=== PATIENT | female | born 1950 | race Two or more races ===

== ENCOUNTER 2019-07-22 16:51 | Observation (INO) | payer MEDICARE, SELFPAY ==
--- NOTE | ~2019-07-22 | XR_ITS ---
XR chest 2V 07/22/2019 17:47 Indication: Left-sided chest pain Procedure: 2 view chest Comparison: 07/24/2018 Findings: Heart size is normal. No focal air space disease, pulmonary edema, pleural effusion or susp ected pneumothorax. No acute osseous abnormality. Impression: 1: No acute cardiopulmonary disease. Reviewed, dictated and finalized at location A. ION STUFFER Impression: 1: No acute cardiopulmonary disease.
--- NOTE | 2019-07-22 17:05 | ECG_ITS ---
Measurements Intervals Brock Rate: 123 P: CT: 0 QRS: 19 QRSD: 86 T: 87 QT: 264 QTc: 379 Interpretive Statements ATRIAL FIBRILLATION WITH RAPID VENTRICULAR RESPONSE INCOMPLETE RIGHT BUNDLE BRANCH BLOCK NONSPECIFIC ST & T-WAVE ABNORMALITY- DIFFUSE LEADS BASELINE ARTIFACT- I, II, AVR, AVL, AVF, V6 ABNORMAL ECG Electronically Signed On 07-22-2019 19:02:10 CYBER ANALYST by Yimi Rome D.O.
[2019-07-22 17:06] VITALS: BP 115/91; PULSE 140; RESP 18; TEMP 36.4; O2SAT 97
[2019-07-22 17:20] LABS: Basophils Percent Auto 0.4 % (0.2-1.2); Eosinophils Absolute Auto 0.2 K/mm3 (0-0.3); Eosinophils Percent Auto 2.8 % (0-4.4); Hematocrit 42.8 % (37.0-47.0); Hemoglobin 13.9 g/dL (12.0-15.0); Immature Granulocyte Absolute 0.01 K/mm3 (0.00-0.031); Immature Granulocyte Percent A 0.1 % (0-0.5); Lymphocytes Absolute Auto 3.32 K/mm3 (0.9-3.2); Lymphocytes Percent Auto 44.9 % (18.3-44.2); Mean Corpuscular HGB Conc 32.5 g/dl (32-36); Mean Corpuscular Hemoglobin 28.5 pg (26-34); Mean Corpuscular Volume 87.7 fl (80-100); Mean Platelet Volume 10.4 fl (7.4-10.4); Monocytes Absolute Auto 0.5 K/mm3 (0.1-0.6); Monocytes Percent Auto 6.4 % (2.6-8.5); Neutrophils Absolute Auto 3.4 K/mm3 (1.3-6.7); Neutrophils Percent Auto 45.4 % (45.5-73.1); Platelet Count Result 192 k/mm3 (150-375); Red Blood Count 4.88 M/mm3 (4.2-5.4); White Blood Count 7.4 K/mm3 (4.5-10.0)
[2019-07-22 17:30] LABS: INR 0.9; Prothrombin Time 11.8 Seconds (11.1-14.7)
[2019-07-22 17:31] LABS: Partial Thromboplastin Time 28.1 SECONDS (22.3-36.8)
[2019-07-22 17:33] LABS: Blood Urea Nitrogen 18 mg/dL (7-17); Calcium 9.5 mg/dL (8.4-10.2); Carbon Dioxide 20 mmol/L (22-30); Chloride 103 mmol/L (98-107); Estimated CRCL calculation 59 ml/min; Estimated Glomerular Filt Rate > 60; Glucose 127 mg/dL (65-105); Sodium 136 mmol/L (137-145)
[2019-07-22 17:45] LABS: Troponin I < 0.012 ng/mL (0.000-0.034)
--- NOTE | 2019-07-22 20:37 | ED.CHESTPAIN ---
HPI - Chest Pain General Chief Complaint: Chest Pain Stated Complaint: CP/DIZZY Time Seen by Provider: 07/22/19 20:35 Source: patient and RN notes reviewed Mode of arrival: ambulatory Limitations: no limitations History of Present Illness HPI narrative: A 69 y/o female, with a hx of A-fib, presents to the ED with constant, 5/10, CP beginning today. She states that she has been dizzy for 5 days, but that today she developed CP that radiates into her lt shoulder and lt neck. She describes the pain as a tightness and also reports some associated SOB. She notes that she is currently on Xarelto and denies missing any dosages. She also denies any N/V/D, ABD pain, fevers, chills, or THAO. MD complaint: chest pain Pertinent past history: other (A-fib) Onset (ago): hour(s) Timing of current episode: constant Pain radiation: neck (lt) and left shoulder Pain scale (0-10): 5 Quality: tightness Associated symptoms: dyspnea and other (dizziness) Related Data Home Medications Medication Instructions Recorded Confirmed atorvastatin 07/22/19 levothyroxine 07/22/19 metoprolol succinate PO 07/22/19 mv,Ca,min-folic acid-vit K1 1 tablet PO DAILY 07/22/19 07/22/19 [One-A-Day Women's 50 Plus] omega 7-zbs-enr-fish oil [Fish Oil] 1 cap PO DAILY 07/22/19 07/22/19 rivaroxaban [Xarelto] mg 07/22/19 Allergies Allergy/AdvReac Type Severity Reaction Status Date / Time Penicillins Allergy Unknown Unknown Verified 07/22/19 20:48 Review of Systems Review of Systems: All systems reviewed & are unremarkable except as noted in HPI and below Constitutional: Constitutional: Denies chills and Denies fever(s) Cardiovascular: Cardiovascular: Reports chest pain (that radiates into lt neck and lt shoulder) Respiratory: Respiratory: Reports dyspnea Gastrointestinal: Gastrointestinal: Denies abdominal pain, Denies diarrhea, Denies nausea and Denies vomiting Neurologic: Reports dizziness and Denies headache(s) [facility] Past Medical History Medical History (Updated 07/22/19 @ 22:33 by Nikolai Goldberg DO) A-fib H/O: HTN (hypertension) Hypercholesteremia Hypothyroid Surgical History Surgical History (Updated 07/22/19 @ 20:58 by Yon Fabian) Surgical history unknown Family History Family History (Updated 01/23/16 @ 11:18 by DOCTOR UNKNOWN) Father Cerebrovascular accident Other Hypertension Social History Social History Smoking status: Never smoker Exam Narrative: Exam Narrative: APPEARANCE: No acute distress, nontoxic, resting in bed EYES: EOMI HEENT: Normocephalic, atraumatic, OMM Neck: Supple, no midline tender palpation, mild tender palpation of her left trapezius muscle with muscle spasm palpated RESPIRATORY: No respiratory distress Clear to auscultation bilaterally with no rhonchi wheezing or rales. CARDIOVASCULAR: Irregular irregular without murmurs rubs or gallops. ABDOMINAL: Soft, nontender, nondistended, no rebound or guarding MUSCULOSKELETAl: Moves all extremities. No clubbing, cyanosis or edema. NEURO: Awake and alert. Following commands, speech normal, no focal deficits SKIN:: Warm, dry. No rashes lesions or abrasions PSYCHIATRIC: Normal affect/mood, Course Course Emergency Course: Discussed with patient and family results of workup and diagnosis. Discussed need for admission. Patient and family understand and agree to current treatment plan Consultations Consultation #1: Discussed case with Dr. South (Hospitalist). Accepts the pt. Date: 07/22/19 Time: 22:07 Vital Signs Vital signs: Vital Signs Temperature 97.5 F L 07/22/19 17:06 Pulse Rate 140 H 07/22/19 17:06 Respiratory Rate 18 07/22/19 17:06 Blood Pressure 115/91 H 07/22/19 17:06 Pulse Oximetry 97 07/22/19 17:06 Temperature 97.5 F L 07/22/19 17:06 Pulse Rate 88 07/22/19 21:52 Respiratory Rate 19 07/22/19 21:52 Blood Pressure 140/98 H 07/22/19 21:52 Pulse Oximetry 94 07/22/19 21:52 MDM - Chest Pain Lab Data
[2019-07-22 20:46] VITALS: BP 135/75; PULSE 102; RESP 23; O2SAT 93
[2019-07-22 21:21] VITALS: BP 139/100; PULSE 90; RESP 18; O2SAT 93
[2019-07-22 21:37] LABS: Troponin I < 0.012 ng/mL (0.000-0.034)
--- NOTE | 2019-07-22 21:42 | PC.NURSE ---
pt states chest pain/tightness has resolved. md notified.
[2019-07-22 21:52] VITALS: BP 140/98; PULSE 88; RESP 19; O2SAT 94
[2019-07-22 22:37] VITALS: BP 161/89; PULSE 91; RESP 14; O2SAT 93
[2019-07-22 23:10] VITALS: BP 137/84; PULSE 107; RESP 16; O2SAT 98
[2019-07-22 23:45] LABS: Troponin I < 0.012 ng/mL (0.000-0.034)
[2019-07-23] VITALS (16 sets, daily range): BP systolic 114–157; BP diastolic 78–97; PULSE 88–144; RESP 14–20; TEMP 36.1–36.8; O2SAT 94–98; BMI 28.0
--- NOTE | 2019-07-23 | ECHO_ITS ---
Patient Info Name: Derrick Bradshaw No Age: 69 years : 1950 Gender: Female Ht: 62 in Wt: 153 lbs BSA: 1.76 m2 HR: 101 bpm BP: 138 / 93 mmHg Technical Quality: Good Exam Date: 07/23/2019 8:29 AM Exam Location: [facility] Pulmonary Patient Status: Inpatient Admit Date: 07/22/2019 Staff Ordering Physician: Aime Rangel MD Sprayer Operator: Master Espino, TRUDY, RT Attending Provider: Duke South MD Exam Type: CA echo doppler color flow Study Info Indications I48.1 - Persistent atrial fibrillation Complete two-dimensional, color flow and Doppler transthoracic echocardiogram is performed. Summary 1. There is mild mitral valve regurgitation. 2. There is mild to moderate aortic valve regurgitation. 3. Left atrial chamber dimension is moderately enlarged. 4. There is mild tricuspid valve regurgitation. 5. Left ventricular systolic function is normal, estimated at 50-55%. 6. Right ventricular systolic function is normal. 7. Right atrial chamber dimension is mildly enlarged. Left Ventricle Left ventricular chamber dimension is normal. Left ventricular systolic function is normal, estimated at 50-55%. There is no increased left ventricular wall thickness. Left ventricular septal wall motion is normal. The left ventricular diastolic function is normal. Right Ventricle Right ventricular chamber dimension is normal. Right ventricular systolic function is normal. Left Atria Left atrial chamber dimension is moderately enlarged. Right Atria Right atrial chamber dimension is mildly enlarged. Aortic Valve The aortic valve is trileaflet. There is no aortic valve sclerosis. There is no aortic valve stenosis. There is mild to moderate aortic valve regurgitation. Pulmonic Valve The pulmonic valve is normal. There is no pulmonic valve stenosis. There is no pulmonic regurgitation. Mitral Valve The mitral valve has normal leaflets. There is no mitral valve stenosis. There is mild mitral valve regurgitation. Tricuspid Valve The tricuspid valve leaflets are normal. There is no significant tricuspid valve stenosis. There is mild tricuspid valve regurgitation. No pulmonary hypertension, estimated pulmonary arterial systolic pressure is 35 mmHg. Pericardium/Pleural The pericardium appears normal. There is no pericardial effusion. Inferior Vena Cava Normal inferior vena cava with >50% collapse upon inspiration consistent with normal right atrial pressure, Empty. Aorta The aortic root size at the sinus of Valsalva is normal. The prox ascending aorta size is normal. Left Ventricular Outflow Tract Name Value Normal LVOT 2D LVOT Diameter 1.9 cm LVOT Doppler LVOT Peak Gradient 2 mmHg LVOT Mean Gradient 1 mmHg LVOT VTI 18 cm LVOT VTI/AV VTI Ratio 0.8 LVOT Stroke Volume 50 ml LVOT CO 3.1 l/min LVOT CI 1.8 l/min/m2 Pulmonic Valve
--- NOTE | 2019-07-23 | PM.IMHP ---
H&P: HPI History of Present Illness Chief complaint: chest pain,afib Narrative: This is a 69 year old female with known history of atrial fibrillation on chornic Xarelto therapy who presented to the ER tonight with a complain of left sided chest pain, left shoulder, and left upper back pain that started today. She described her chest pain as chest tightness. Her chest pain seems to radiate towards her left shoulder and left neck. Associated symptoms include shortness of breath. She denies any palpitations tonight. The patient was evaluated in the ER tonight and her chest pain resolved with IV acetaminophen. She is known to follow up with Cardiology at [facility]. On my encounter with her she no longer has any chest pain. She denies any fever, cough, chills, shortness of breath, chest pain, abdominal pain, dysuria, hematuria, diarrhea or palpitations. She denies any other symptoms at this time. The patient has been admitted to the hospital for cardiac rule out. Review of Systems Review of Systems: All systems reviewed & are unremarkable except as noted in HPI and below PMFSH Past Medical History Medical History A-fib H/O: HTN (hypertension) Hypercholesteremia Hypothyroid Surgical History Surgical History Surgical history unknown Family History Family History Father Cerebrovascular accident Other Hypertension Social History Social History Smoking status: Never smoker Alcohol intake: never Substance use: never Gender identity (if verbalized by the patient): Female Spiritual care concerns: No Agree to blood products: Yes Meds Home Medications and Allergies Home Medications Medication Instructions Recorded Confirmed Type atorvastatin 10 mg PO DAILY 07/22/19 07/23/19 History levothyroxine 50 mcg PO DAILY 07/22/19 07/23/19 History metoprolol succinate 100 mg PO DAILY 07/22/19 07/23/19 History mv,Ca,min-folic acid-vit K1 1 tablet PO DAILY 07/22/19 07/22/19 History [One-A-Day Women's 50 Plus] omega 7-una-qcf-fish oil [Fish Oil] 1 cap PO DAILY 07/22/19 07/22/19 History rivaroxaban [Xarelto] 20 mg PO DAILY 07/22/19 07/23/19 History Allergies Allergy/AdvReac Type Severity Reaction Status Date / Time Penicillins Allergy Unknown Unknown Verified 07/22/19 20:48 Vital Signs Vital Signs - 24 hr 07/22/19 17:06 07/22/19 20:46 07/22/19 21:21 Temperature 36.4 C L Pulse Rate 140 H 102 H 90 Respiratory Rate 18 23 H 18 Blood Pressure 115/91 H 135/75 139/100 H Pulse Oximetry 97 93 93 07/22/19 21:52 07/22/19 22:37 07/22/19 23:10 Temperature Pulse Rate 88 91 107 H Respiratory Rate 19 14 16 Blood Pressure 140/98 H 161/89 H 137/84 Pulse Oximetry 94 93 98 Exam Const: General: cooperative, healthy appearing, no acute distress, alert and awake Nutritional Appearance: well nourished Orientation/consciousness: patient oriented x3 HENMT: Head: normal to inspection General nose exam: Normal external nose present Face and sinus: normal facial exam Mouth: Yes Normal oral and palatal mucosa present and Yes oropharynx normal Eyes: Pupils: Equal, round and reactive pupils present EOM: EOMs intact bilaterally Neck: Neck: supple and no JVD Thyroid: thyroid normal Lymphatic: lymphadenopathy not noted Resp: Effort & Inspection: normal respiratory effort Auscultation: clear to auscultation bilaterally Cardio: Rate: regular rate Rhythm: regular rhythm Heart sounds: no murmurs GI: Inspection: normal to inspection Auscultation: normal bowel sounds Skin: General skin exam: normal color and no rashes or lesions noted Neuro: General: patient oriented x3 Cranial nerves: Yes CN's II-XII intact bilaterally and Yes Equal, round and reactive pupils present Speech: nor
--- NOTE | 2019-07-23 04:26 | ADMGEN ---
This patient, Derrick Sousa, was admitted to IMU Room 200-01on 07/23/2019 at 0040. Patient/family oriented to hospital policies and general routines including ID bracelet, bed and alarms, visiting hours, pain management, procedures, bathroom and other care routines, personal items, smoking policy, room service/diet, and visiting hours. Valuables list has been completed. Information on how to activate the Rapid Response Team has been discussed. Patient/Family are encouraged to report perceived risks to care and to ask questions if they do not understand what they are told or what they should do.
[2019-07-23 04:51] LABS: Basophils Percent Auto 0.4 % (0.2-1.2); Eosinophils Absolute Auto 0.2 K/mm3 (0-0.3); Eosinophils Percent Auto 3.3 % (0-4.4); Hematocrit 39.8 % (37.0-47.0); Hemoglobin 13.2 g/dL (12.0-15.0); Immature Granulocyte Absolute 0.02 K/mm3 (0.00-0.031); Immature Granulocyte Percent A 0.3 % (0-0.5); Lymphocytes Absolute Auto 3.05 K/mm3 (0.9-3.2); Lymphocytes Percent Auto 43.8 % (18.3-44.2); Mean Corpuscular HGB Conc 33.2 g/dl (32-36); Mean Corpuscular Hemoglobin 28.9 pg (26-34); Mean Corpuscular Volume 87.3 fl (80-100); Mean Platelet Volume 10.3 fl (7.4-10.4); Monocytes Absolute Auto 0.5 K/mm3 (0.1-0.6); Monocytes Percent Auto 7.6 % (2.6-8.5); Neutrophils Absolute Auto 3.1 K/mm3 (1.3-6.7); Neutrophils Percent Auto 44.6 % (45.5-73.1); Platelet Count Result 175 k/mm3 (150-375); Red Blood Count 4.56 M/mm3 (4.2-5.4); Red Cell Distribution Width 12.8 % (11.5-14.5)
[2019-07-23 05:01] LABS: Blood Urea Nitrogen 19 mg/dL (7-17); Calcium 8.9 mg/dL (8.4-10.2); Carbon Dioxide 24 mmol/L (22-30); Chloride 106 mmol/L (98-107); Cholesterol 140 mg/dL (0-200); Estimated CRCL calculation 60 ml/min; Estimated Glomerular Filt Rate > 60; Glucose 103 mg/dL (65-105); HDL Direct 35 mg/dL; Potassium 3.4 mmol/L (3.4-5.0); Sodium 137 mmol/L (137-145); Triglycerides 163 mg/dL (<150)
[2019-07-23 05:12] LABS: LDL Cholesterol Direct 86 mg/dL
[2019-07-23] MEDS: LEVOTHYROXINE SODIUM 50 MCG TABLET PO (06:34)
[2019-07-23] MEDS: METOPROLOL SUCCINATE EXT REL 100 MG TABCR PO (09:30)
[2019-07-23] MEDS: THERAPEUTIC MULTIVITAMINS/MINERALS TAB (*BKC) 1 TABLET PO (09:31)
--- NOTE | 2019-07-23 10:17 | PM.CNCAR ---
Assessment and Plan Assessment and plan (1) Hypercholesteremia: Code(s): E78.00 - Pure hypercholesterolemia, unspecified Status: Chronic (2) H/O: HTN (hypertension): Code(s): Z86.79 - Personal history of other diseases of the circulatory system Status: Chronic Assessment and Plan: Edison well controlled. Continue medications (3) Atrial fibrillation: Qualifiers: Atrial fibrillation type: unspecified Qualified Code(s): I48.91 - Unspecified atrial fibrillation Code(s): I48.91 - Unspecified atrial fibrillation Status: Acute Assessment and Plan: Patient with chronic atrial fibrillation. Heart rate well controlled. Continue metoprolol Patient is on Xarelto for anticoagulation will continue Patient appears stable from cardiac standpoint. Follow-up for [facility] cosmetic sales assistant in 1 week History of Present Illness History of Present Illness Consult date/time: 07/23/19 10:17. Mrs. Sousa is a pleasant 69-year-old female with past medical history of hypertension and hyperlipidemia as well as atrial fibrillation. She presented to [facility] because of palpitation. Patient experienced palpitations yesterday which have resolved. She does follow with cardiology in [place] she stated she had tests done over the there iincluding ECHO. . Patient was seen and examined, chart was reviewed. Reason For Visit: chest pain,afib Review of Systems Review of Systems: All systems reviewed & are unremarkable except as noted in HPI and below Constitutional: Constitutional: Reports as per HPI Eyes: Eyes: Reports as per HPI ENT: Reports system reviewed and no additional complaints, except as documented and Reports as per HPI Cardiovascular: Cardiovascular: Reports as per HPI Respiratory: Respiratory: Reports as per HPI Gastrointestinal: Gastrointestinal: Reports as per HPI Genitourinary: Genitourinary: Reports as per HPI Musculoskeletal: Musculoskeletal: Reports as per HPI [facility] Past Medical History Medical History A-fib H/O: HTN (hypertension) Hypercholesteremia Hypothyroid Surgical History Surgical History Surgical history unknown Family History Family History Father Cerebrovascular accident Other Hypertension Social History Social History Smoking status: Never smoker Alcohol intake: never Substance use: never Gender identity (if verbalized by the patient): Female Spiritual care concerns: No Agree to blood products: Yes Meds Home Medications and Allergies Home Medications Medication Instructions Recorded Confirmed Type atorvastatin 10 mg PO DAILY 07/22/19 07/23/19 History levothyroxine 50 mcg PO DAILY 07/22/19 07/23/19 History metoprolol succinate 100 mg PO DAILY 07/22/19 07/23/19 History mv,Ca,min-folic acid-vit K1 1 tablet PO DAILY 07/22/19 07/22/19 History [One-A-Day Women's 50 Plus] omega 5-pxp-cpf-fish oil [Fish Oil] 1 cap PO DAILY 07/22/19 07/22/19 History rivaroxaban [Xarelto] 20 mg PO DAILY 07/22/19 07/23/19 History Allergies Allergy/AdvReac Type Severity Reaction Status Date / Time Penicillins Allergy Unknown Unknown Verified 07/22/19 20:48 Vital Signs Vital Signs - 24 hr 07/22/19 17:06 07/22/19 20:46 07/22/19 21:21 Temperature 36.4 C L Pulse Rate 140 H 102 H 90 Respiratory Rate 18 23 H 18 Blood Pressure 115/91 H 135/75 139/100 H Pulse Oximetry 97 93 93 07/22/19 21:52 07/22/19 22:37 07/22/19 23:10 Temperature Pulse Rate 88 91 107 H Respiratory Rate 19 14 16 Blood Pressure 140/98 H 161/89 H 137/84 Pulse Oximetry 94 93 98 07/23/19 00:05 07/23/19 00:14 07/23/19 00:40 Temperature 36.1 C L Pulse Rate 88 103 H 116 H Respiratory Rate 16 16 16 Blood Pressure 141/97 H 141/9
[2019-07-23] MEDS: ATORVASTATIN 10 MG TABLET PO (10:47)
[2019-07-23] MEDS: OMEGA 3 POLYUNSAT FATTY ACIDS 1 GM CAP PO (10:47)
[2019-07-23] MEDS: RIVAROXABAN 20 MG TABLET PO (16:40)
[2019-07-23] MEDS: METOPROLOL SUCCINATE EXT REL 50 MG TABCR PO (16:41)
--- NOTE | 2019-07-27 14:14 | PM.DS ---
DS: Diagnosis Admitting Diagnosis Admitting Diagnosis: Chest pain, unspecified Discharge Diagnosis (1) Chest pain: Qualifiers: Chest pain type: unspecified Qualified Code(s): R07.9 - Chest pain, unspecified Code(s): R07.9 - Chest pain, unspecified Status: Acute Assessment and Plan: The patient was admitted for observation. Chest pain is musculoskeletal as she also has left shoulder pain with movement and palpation. troponin were negative as was EKG for ischemia. . Cardiology felt may be possible partially due to afib rate so metoprolol increased to 150 mg per day. echo normal ejection fraction at 50-50 % with no wall motion abnormalities or significant valve dysfunction (2) Atrial fibrillation: Qualifiers: Atrial fibrillation type: unspecified Qualified Code(s): I48.91 - Unspecified atrial fibrillation Code(s): I48.91 - Unspecified atrial fibrillation Status: Acute Assessment and Plan: . Continue Xarelto. Increased metoprolol to 150 daily and pulse in the 90s by time of discharge (3) H/O: HTN (hypertension): Code(s): Z86.79 - Personal history of other diseases of the circulatory system Status: Chronic Assessment and Plan: Stable continue home antihypertensives. (4) Hypothyroid: Qualifiers: Hypothyroidism type: unspecified Qualified Code(s): E03.9 - Hypothyroidism, unspecified Code(s): E03.9 - Hypothyroidism, unspecified Status: Chronic Assessment and Plan: continue levothyroxine. TSH normal (5) Hypercholesteremia: Code(s): E78.00 - Pure hypercholesterolemia, unspecified Status: Chronic Assessment and Plan: Continue statin atorvastatin. DS: Summary Hospital Course Hospital Course: 69-year-old female with chronic AFib admitted with atypical shoulder and back pain with atrial fibrillation and increased ventricular response. Troponins were negative and echocardiogram showed no wall motion abnormalities with ejection fraction of 50-55%. Seen by cardiology did not feel she had ischemic pain and metoprolol was increased to 150 mg daily to continue drove ventricular response. She will follow-up with her ticker maintainer in all Time Spent with Patient Time attestation: Total time spent providing and/or coordinating discharge services: 35 minutes Exam Narrative: Exam Narrative: condition on discharge: blood pressure 114/78 pulse is 94 irregular lungs clear CV irregular no murmurs abdomen soft nontender extremities without edema Discharge Plan Discharge Attending physician on discharge: Manfred Amos Consulting providers: Lyndon Gagnon ; Valentin Rodriguez ; Steve Elizabeth ; Yimi Rome Discharging Clinician: Manfred Amos Patient Disposition: Home, Self-Care Activity: as tolerated Diet: low sodium and low cholesterol Patient Instructions: A-fib (Atrial Fibrillation) (GEN) Stand Alone Forms: General Discharge Information Follow-up/Referrals: UNKNOWN,DOCTOR [Primary Care Provider] - 2 Weeks (see ticker maintainer 1-2 weeks) Discharge Medications: New metoprolol succinate 50 mg tablet extended release 24 hr 50 mg PO DAILY Qty: 30 RF: 0 Continued atorvastatin 10 mg tablet 10 mg PO DAILY RF: 0 metoprolol succinate 100 mg tablet extended release 24 hr 100 mg PO DAILY RF: 0 levothyroxine 50 mcg tablet 50 mcg PO DAILY RF: 0 omega 5-tfj-qwd-fish oil [Fish Oil] 1,000 mg (120 mg-180 mg) Capsule 1 cap PO DAILY RF: 0 Xarelto 20 mg tablet 20 mg PO DAILY RF: 0 One-A-Day Women's 50 Plus 400-20 mcg Tablet 1 tablet PO DAILY RF: 0 Date of admission: 07/22/19 22:11 Primary Care Provider: UNKNOWN,DOCTOR Admitting Provider: Duke South Discharge Date/Time: 07/23/19 18:30 Attending physician on admission: Manfred Amos Condition: Stable
== END 2019-07-23 18:30 | disposition home or self-care (01) ==
LOC: ANHED 22:33 → ANHIMU 07-23 11:23
PROVIDERS: Emergency Medicine; Admitting Provider Family Medicine; Emergency Provider Emergency Medicine; Visit Provider Internal Medicine
DX: I48.20 Chronic atrial fibrillation, unspecified (principal); R07.89 Other chest pain; I10 Essential (primary) hypertension; E78.00 Pure hypercholesterolemia, unspecified; E03.9 Hypothyroidism, unspecified; Z79.01 Long term (current) use of anticoagulants; Z79.899 Other long term (current) drug therapy
CPT/HCPCS: 36415; 71046; 80048; 80061; 84484; 85025; 85610; 85730; 93005; 93306; 96374; 99285; A9270; G0378; J0131

== ENCOUNTER → 2020-10-27 12:20 | Outpatient (CLI) | payer MEDICARE, SELFPAY ==
--- NOTE | ~2020-10-27 | MM_ITS ---
EXAMINATION: MM screening lizzie BI w carmela HISTORY: Screening TECHNIQUE: Craniocaudal and mediolateral oblique 3-D tomosynthesis images were obtained and synthetic 2-D images were generated. CAD analysis was submitted and interpreted. COMPARISON: 02/12/2016 BREAST PARENCHYMAL COMPOSITION: The breasts are heterogenously dense, which may obscure small masses. FINDINGS: There is no evidence of suspicious mass, calcification, or architectural distortion to sugg est malignancy in either breast. There has been no suspicious interval change. IMPRESSION: 1. No mammographic evidence of malignancy. 2. Recommend routine screening mammography in one year. BI-RADS Category 1: Negative Reviewed, dictated and finalized at location A.
--- NOTE | ~2020-10-27 | DEXA_ITS ---
Bone Density Report Name: Derrick Sousa Age: 70 Sex: Female Ethnicity: White Date of : 1950 Indication: postmenopausal; screening for osteoporosis; Referring Provider: QUINTON WATSON Study: Bone densitometry was performed. Exam Date: October 27, 2020 Accession number: [id number] Bone Density: Region BMD T-score Z-score Classification AP Spine (L1, L2, L3) 0.967 -0.5 1.6 Normal Femoral Neck (Left) 0.816 -0.3 1.5 Normal Total Hip (Left) 0.952 0.1 1.6 Normal Femoral Neck (Right) 0.774 -0.7 1.2 Normal Total Hip (Right) 0.934 -0.1 1.5 Normal Total Hip Mean 0.943 0.0 1.6 Normal World Health Organization criteria for BMD impression classify patients as: Normal (T-score at or above -1.0), Osteopenia (T-score between -1.0 and -2.5), or Osteoporosis (T-score at or below -2.5). 10-year Fracture Risk: FRAX not reported because: All T-scores for Spine Total, Hip Total, Femoral Neck at or above -1.0 Clinical Information Provided by Patient: Has used the following medications: Vitamin D, Calcium, MTV, LEVOTHYROXINE Patient maximum height was 6.0 Menopause Age: 48 No regular weight bearing exercise Does not regularly consume dairy products Drinks caffeinated beverages Onset of menses at age 14 Number of children 2 Impression: The patient has normal bone mass. Discussion: BONE DENSITY IS ABOVE THE MINIMUM DESIRABLE LEVEL AT ALL SKELETAL SITES TESTED. This patient?s bone mineral density is above the minimum desirable level (T-score -1.0 or better) at all sites measured. The patient should follow a healthful lifestyle (good nutrition with adequate calcium and vitamin D, and appropriate weight-bearing exercise). Follow-Up: Consider repeating this study in 5 years or sooner if there is some new clinical indication. Reported by: SAM on 10/27/2020 12:54:00 PM. Reviewed, dictated and finalized at location ASarah HOOD
== END ==
PROVIDERS: PCP Internal Medicine; Visit Provider Internal Medicine
DX: Z12.31 Encounter for screening mammogram for malignant neoplasm of breast (principal); Z78.0 Asymptomatic menopausal state
CPT/HCPCS: 77063; 77067; 77080

== ENCOUNTER 2021-04-20 01:51 | Day surgery (SDC) | payer MEDICARE, SELFPAY ==
[2021-04-09 09:17] VITALS: BMI 27.3
[2021-04-20 06:42] VITALS: BP 143/60; PULSE 84; RESP 16; TEMP 36.2; O2SAT 98; BMI 28.5
[2021-04-20] MEDS: LACTATED RINGERS 1,000 ML 150 ML IV CONT (06:59)
--- NOTE | 2021-04-20 07:09 | WPDANESEPPF ---
Anes - Initial Pre Proc Eval Procedure: Operation Date: 04/20/21 08:00 Proposed Procedures p Screening Colonoscopy - Allan Starkey MD Date/Time: 04/20/21 07:09 Surgeon: Allan Starkey MD Pre Op Diagnosis: neoplasm screening Patient Data Age: 71 Gender: F Height: 1.57 m Weight: 70.7 kg Last Vital Signs Temp 36.2 C L 04/20/21 06:42 Pulse 84 04/20/21 06:42 Resp 16 04/20/21 06:42 BP 143/60 H 04/20/21 06:42 Pulse Ox 98 04/20/21 06:42 Allergies Allergy/AdvReac Type Severity Reaction Status Date / Time Penicillins Allergy Unknown Unknown Verified 04/20/21 06:47 Home Medications Medication Instructions Recorded Confirmed Type One-A-Day Women's 50 Plus 1 tablet PO DAILY 07/22/19 04/20/21 History Xarelto 20 mg PO DAILY 07/22/19 04/20/21 History metoprolol succinate 100 mg PO DAILY 07/22/19 04/20/21 History omega 7-wke-sqy-fish oil [Fish Oil] 1 cap PO DAILY 07/22/19 04/20/21 History aspirin 81 mg tablet,delayed 81 mg PO DAILY 08/31/20 04/20/21 History release cholecalciferol (vitamin D3) 50 50 mcg PO DAILY 08/31/20 04/20/21 History mcg (2,000 unit) capsule coenzyme Q10 200 mg capsule 200 mg PO DAILY 08/31/20 04/20/21 History glucosamine 750 [id number] 1 tablet PO DAILY tablet 08/31/20 04/20/21 History no1 644 mg-C 30 mg-sushant 1 mg tablet magnesium oxide 400 mg PO DAILY 08/31/20 04/20/21 History levothyroxine 50 mcg tablet 50 mcg PO DAILY #90 tablet 02/02/21 04/20/21 Rx atorvastatin 10 mg tablet 10 mg PO DAILY #90 tablet 04/02/21 04/20/21 Rx Patient hx anesthesia problems: none Family hx anesthesia problems: none Results Review: All pre-operative results and documents have been reviewed as part of the pre-operative evaluation. [facility] Past Medical History Medical History A-fib Abnormal EKG Alopecia Body mass index [BMI] 27.0-27.9, adult (01/23/16) Encounter for general adult medical examination with abnormal findings Fatigue H/O: HTN (hypertension) Hematuria Hypercholesteremia Hypothyroid long-term use of drug Skin lesion of left arm Vitamin D deficiency Surgical History Surgical History Surgical history unknown Family History Family History Father Cerebrovascular accident Mother Hypertension Son Hypertension Afib Social History Social History Smoking status: Never smoker Alcohol intake: never Substance use: never Living arrangements: with family Gender identity (if verbalized by the patient): Female Spiritual care concerns: No Agree to blood products: Yes Anes - Eval Final PreProcedure Day of Procedure 04/20/21 07:09 Patient weight: overweight Heart: regular rate and rhythm Lungs: clear to auscultation Neurological: alert and oriented Last oral intake: >/= 8 hours ASA classification: III Emergent: no Anesthetic plan: proceed Anesthesia type and monitoring: general GIVS and standard monitoring Results Review: All pre-operative results and documents have been reviewed as part of the pre-operative evaluation. Informed Consent: The patient's anesthetic plan and its attendant risks and benefits were discussed with the patient/family/POA. Questions were solicited and answers provided to the satisfaction of the patient/family/POA.
--- NOTE | 2021-04-20 07:59 | PM.HPGS ---
History of Present Illness History of Present Illness Consent: Risks, benefits, and alternatives have been discussed and questions answered. Patient agrees to proceed with procedure. Chief complaint: neoplasm screening Narrative: Derrick Sousa is a 71 year old female here for first colonoscopy, had + cologuard Review of Systems Constitutional: Constitutional: Denies headache(s) and Denies weakness Eyes: Eyes: Denies blurry vision ENT: Reports Normal hearing present, Denies headache(s) and Denies neck pain Cardiovascular: Cardiovascular: Denies chest pain and Denies dyspnea Respiratory: Respiratory: Denies dyspnea Gastrointestinal: Gastrointestinal: Reports no additional gastrointestinal complaints Genitourinary: Genitourinary: Denies dysuria Musculoskeletal: Musculoskeletal: Denies neck pain Integumentary/Breasts: Skin/Breast: Denies dry skin Neurologic: Reports Normal hearing present, Denies headache(s) and Denies weakness Psychiatric: Psychiatric: Denies anxiety Endocrine: Endocrine: Denies change in body appearance Hematologic/Lymphatic: Hematologic/Lymphatic: Denies easy bleeding Allergic/Immunologic: Allergic/Immunologic: Denies urticaria PMFSH Past Medical History Medical History (Updated 04/20/21 @ 07:59 by Allan Starkey MD) A-fib Abnormal EKG Alopecia Body mass index [BMI] 27.0-27.9, adult (01/23/16) Encounter for general adult medical examination with abnormal findings Fatigue H/O: HTN (hypertension) Hematuria Hypercholesteremia Hypothyroid [facility] use of drug Positive colorectal cancer screening using Cologuard test Skin lesion of left arm Vitamin D deficiency Surgical History Surgical History Surgical history unknown Family History Family History Father Cerebrovascular accident Mother Hypertension Son Hypertension Afib Social History Social History Smoking status: Never smoker Alcohol intake: never Substance use: never Living arrangements: with family Gender identity (if verbalized by the patient): Female Spiritual care concerns: No Agree to blood products: Yes Meds Home Medications and Allergies Home Medications Medication Instructions Recorded Confirmed Type One-A-Day Women's 50 Plus 1 tablet PO DAILY 07/22/19 04/20/21 History Xarelto 20 mg PO DAILY 07/22/19 04/20/21 History metoprolol succinate 100 mg PO DAILY 07/22/19 04/20/21 History omega 3-hci-ctv-fish oil [Fish Oil] 1 cap PO DAILY 07/22/19 04/20/21 History aspirin 81 mg tablet,delayed 81 mg PO DAILY 08/31/20 04/20/21 History release cholecalciferol (vitamin D3) 50 50 mcg PO DAILY 08/31/20 04/20/21 History mcg (2,000 unit) capsule coenzyme Q10 200 mg capsule 200 mg PO DAILY 08/31/20 04/20/21 History glucosamine 750 [id number]-wxq 1 tablet PO DAILY tablet 08/31/20 04/20/21 History no1 644 mg-C 30 mg-sushant 1 mg tablet magnesium oxide 400 mg PO DAILY 08/31/20 04/20/21 History levothyroxine 50 mcg tablet 50 mcg PO DAILY #90 tablet 02/02/21 04/20/21 Rx atorvastatin 10 mg tablet 10 mg PO DAILY #90 tablet 04/02/21 04/20/21 Rx Allergies Allergy/AdvReac Type Severity Reaction Status Date / Time Penicillins Allergy Unknown Unknown Verified 04/20/21 06:47 Vital Signs Vital Signs - 24 hr 04/20/21 06:42 Temperature 97.2 F L Pulse Rate 84 Respiratory Rate 16 Blood Pressure 143/60 H Pulse Oximetry 98 Exam Const: General: comfortable and no acute distress HENMT: General nose exam: Normal nares present Eyes: General: appearance normal, both eyes and all related structures Neck: Neck: no JVD Resp: Auscultation: clear to auscultation bilaterally Cardio: Rate: regular rate Rhythm: regular rhythm GI: Inspection: non-distended GI Palp: Yes Soft to palpation Skin: General skin exam: normal
[2021-04-20 08:26] VITALS: BP 88/50; PULSE 56; RESP 16; O2SAT 96
[2021-04-20 08:36] VITALS: BP 81/45; PULSE 52; RESP 21; O2SAT 98
[2021-04-20 08:46] VITALS: BP 133/66; PULSE 50; RESP 14; O2SAT 96
== END 2021-04-20 08:48 | disposition home or self-care (01) ==
PROVIDERS: PCP Internal Medicine; Visit Provider Internal Medicine Gastroenterology
PROC: 0DJD8ZZ Inspection of Lower Intestinal Tract, Via Natural or Artificial Opening Endoscopic (ICD-10-PCS; CPT 45378; principal; 2021-04-20 08:00)
DX: R19.5 Other fecal abnormalities (principal); D12.0 Benign neoplasm of cecum; D12.2 Benign neoplasm of ascending colon; D12.3 Benign neoplasm of transverse colon; I48.20 Chronic atrial fibrillation, unspecified; I10 Essential (primary) hypertension; E78.00 Pure hypercholesterolemia, unspecified; E55.9 Vitamin D deficiency, unspecified; E03.9 Hypothyroidism, unspecified; Z79.899 Other long term (current) drug therapy
CPT/HCPCS: 45385; 45380; 88305; J2001; J2704; J7120

== ENCOUNTER → 2022-02-19 13:39 | Outpatient (CLI) | payer MEDICARE, SELFPAY ==
--- NOTE | ~2022-02-19 | MM_ITS ---
EXAMINATION: MM screening [facility] BI w carmela HISTORY: Screening mammogram TECHNIQUE: Craniocaudal and mediolateral oblique 3-D tomosynthesis images were obtained and synthetic 2-D images were generated. CAD analysis was submitted and interpreted. COMPARISON: 10/27/2020, 02/12/2016 BREAST PARENCHYMAL COMPOSITION: The breasts are heterogeneously dense, which may obscure small masses . FINDINGS: There is no suspicious mass, calcification, or architectural distortion to suggest malignan cy in either breast. There has been no suspicious interval change. IMPRESSION: 1. No mammographic evidence of malignancy. 2. Recommend routine screening mammography in one year. BI-RADS Category 1: Negative Reviewed, dictated and finalized at location A.
== END ==
PROVIDERS: PCP Internal Medicine; Visit Provider Internal Medicine
DX: Z12.31 Encounter for screening mammogram for malignant neoplasm of breast (principal)
CPT/HCPCS: 77063; 77067